=== PATIENT | male | born 1975 | race Caucasian/White ===

== ENCOUNTER 2020-12-29 16:54 | Emergency (ER) | payer OTHER ==
--- NOTE | 2020-12-29 18:19 | XR ---
EXAMINATION TYPE: XR chest 2V DATE OF EXAM: 12/29/2020 COMPARISON: NONE HISTORY: Short of breath TECHNIQUE: 2 views FINDINGS: Heart and mediastinum are normal. There is no pleural effusion. There is some mild increase d interstitial density in the left lung. Bony thorax is intact. There are no hilar masses. Exam limit ed by the lordotic projection. IMPRESSION: Limited exam appears to show some interstitial pneumonia on the left side. Normal heart.
[2020-12-29] MEDS ORDERED: DEXAMETHASONE SOD PHOSPHATE 10 MG/ML 1 ML VIAL IV STA (18:36)
--- NOTE | 2020-12-29 18:43 | ED ---
General Adult HPI - General Chief complaint: Shortness of Breath Stated complaint: COVID+ Time Seen by Provider: 12/29/20 16:55 Source: patient, RN notes reviewed, old records reviewed Mode of arrival: ambulatory Limitations: no limitations - History of Present Illness Initial comments: This a 45-year-old male presents emergency department stating that he had vaccination for COVID. Patient states last Monday he started having some symptoms of shortness of breath and fever. Patient states he was tested for COVID on Monday and was positive. Patient states since then his symptoms have worsened. Patient states he is much more short of breath walking but does feel okay sitting still. Patient denies any fever in the last day or 2. Patient denies any chest pain or palpitations. Patient denies any other symptoms at this time. Patient's pulse ox while in bed was 95% on room air - Related Data Home Medications Medication Instructions Recorded Confirmed Atorvastatin [Lipitor] 20 mg PO DAILY 12/29/20 12/29/20 Dapagliflozin Propanediol [Farxiga] 10 mg PO DAILY 12/29/20 12/29/20 Ibuprofen [Motrin] 800 mg PO DAILY PRN 12/29/20 12/29/20 Lisinopril-Hctz 20-12.5 mg 1 tab PO DAILY 12/29/20 12/29/20 [Zestoretic 20-12.5] Semaglutide [Rybelsus] 6 mg PO DAILY 12/29/20 12/29/20 Previous Rx's Medication Instructions Recorded Dexamethasone [Decadron] 6 mg PO DAILY #7 tablet 12/29/20 Allergies Allergy/AdvReac Type Severity Reaction Status Date / Time No Known Allergies Allergy Verified 12/29/20 19:54 Review of Systems ROS Statement: Those systems with pertinent positive or pertinent negative responses have been documented in the HPI. ROS Other: All systems not noted in ROS Statement are negative. Past Medical History Past Medical History: Diabetes Mellitus, Hypertension History of Any Multi-Drug Resistant Organisms: None Reported Past Surgical History: Orthopedic Surgery Additional Past Surgical History / Comment(s): Trach, Past Psychological History: No Psychological Hx Reported Smoking Status: Never smoker Past Alcohol Use History: Occasional Past Drug Use History: None Reported General Exam - General Exam Comments Initial Comments: GENERAL: Patient is well-developed and well-nourished. Patient is nontoxic and well- hydrated and is in no acute distress. ENT: Neck is soft and supple. No significant lymphadenopathy is noted. Oropharynx is clear. Moist mucous membranes. Neck has full range of motion without eliciting any pain. EYES: The sclera were anicteric and conjunctiva were pink and moist. Extraocular movements were intact and pupils were equal round and reactive to light. Eyelids were unremarkable. PULMONARY: Unlabored respirations. Good breath sounds bilaterally. No audible rales rhonchi or wheezing was noted. CARDIOVASCULAR: There is a regular rate and rhythm without any murmurs gallops or rubs. ABDOMEN: Soft and nontender with normal bowel sounds. SKIN: Skin is clear with no lesions or rashes and otherwise unremarkable. NEUROLOGIC: Patient is alert and oriented x3. Cranial nerves II through XII are grossly intact. Motor and sensory are also intact. Normal speech, volume and content. Symmetrical smile. MUSCULOSKELETAL: Normal extremities with adequate strength and full range of motion. No lower extremity swelling or edema. No calf tenderness. LYMPHATICS: No significant lymphadenopathy is noted PSYCHIATRIC: Normal psychiatric evaluation. Limitations: no limitations Course Vital Signs 12/29/20 12/29/20 12/29/20 16:55 18:59 19:24 Temperature 98.1 F 98.4 F Pulse Rate 109 H 95 94 Respiratory 22 18 18 Rate Blood Pressure 100/59 115/65 O2 Sat by Pulse 94 L 94 L 95 Oximetry Medical Decision Making - Medical Decision Making Chest x-ray shows some infiltrate in the left side of the lung consistent with COVID pneumonia Patient wanted to get the monoclonal antibodies are explained to him what they were and he was on she 95% on room air so monoclonal antibodies were given as well as Decadron. After the patient received the monoclonal antibodies he was reevaluated about 25 minutes after and he was feeling better and was ready to be discharged home. I will send the patient home on Decadron. Patient is been educated on returning criteria and he understands that if anything gets worse in any way he is to return immediately Disposition Clinical Impression: Pneumonia due to COVID-19 virus Disposition: HOME SELF-CARE Condition: Good Instructions (If sedation given, give patient instructions): Coronavirus Disease 2019 (COVID-19) Additional Instructions: Patient is to return immediately if there is any difficulty breathing or any new symptoms. Prescriptions: Dexamethasone [Decadron] 6 mg PO DAILY #7 tablet Is patient prescribed a controlled substance at d/c from ED?: No Referrals: Santhosh Reece MD [Primary Care Provider] - 1-2 days Time of Disposition: 20:25
[2020-12-29 19:00] VITALS: RESP 18
[2020-12-29] MEDS ORDERED: CASIRIVIMAB/IMDEVIMAB (EUA) 1,200 MG in SODIUM CHLORIDE 0.9% 100 ML IVPB ONE (19:30)
[2020-12-29] MEDS ORDERED: SODIUM CHLORIDE 0.9% 50 ML IVPB ONE (20:00)
[2020-12-29 20:32] VITALS: BP 112/73; PULSE 84; TEMP 100.1
[2020-12-29] MEDS ORDERED: ACETAMINOPHEN TAB 325 MG TAB PO STA (20:33)
== END 2020-12-29 21:00 | disposition home or self-care (01) ==
LOC: EC 16:54
DX: U07.1 COVID-19 (principal); J12.82 Pneumonia due to coronavirus disease 2019; E11.9 Type 2 diabetes mellitus without complications; I10 Essential (primary) hypertension; Z79.899 Other long term (current) drug therapy; Z79.84 Long term (current) use of oral hypoglycemic drugs
CPT/HCPCS: 71046; 99284; 96365; 96375; J1100; Q0243